=== PATIENT | female | born 1950 ===

== ENCOUNTER 2017-03-21 11:59 | Emergency (ER) | payer OTHER ==
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
[2017-03-21 13:16] LABS: BASO % 0.7 % (0.0-2.0); EOS # 0.2 K/uL (0.0-0.7); EOS % 2.9 % (0.0-4.0); HEMATOCRIT 34.5 % (34.0-47.0); LYMPH # 2.8 K/uL (1.0-4.3); LYMPH % 36.9 % (20.0-40.0); MEAN CELL VOLUME 75.3 fL (81.0-99.0); MEAN CORPUSCULAR HGB CONC 31.9 g/dL (33.0-37.0); MEAN PLATELET VOLUME 7.6 fL (7.2-11.7); MONO # 0.6 K/uL (0.0-0.8); MONO % 7.7 % (0.0-10.0); NRBC % 0.1 % (0.0-2.0); RED CELL DISTRIBUTION WIDTH 15.9 % (11.5-14.5); WHITE BLOOD COUNT 7.7 K/uL (4.8-10.8)
[2017-03-21 13:33] LABS: RBC URINE 3 /hpf (0-3); URINE BILIRUBIN NEGATIVE (NEGATIVE); URINE BLOOD 1+ (NEGATIVE); URINE COLOR Yellow (YELLOW); URINE GLUCOSE (UA) NORMAL (Normal); URINE KETONE NEGATIVE (NEGATIVE); URINE LEUKOCYTE ESTERASE NEG Leu/uL (Negative); URINE PROTEIN NEGATIVE (NEGATIVE); URINE UROBILINOGEN NORMAL mg/dL (0.2-1.0); WBC URINE 2 /hpf (0-5)
[2017-03-21 13:36] LABS: CHLORIDE 99 mmol/L (98-107); POTASSIUM 3.8 mmol/L (3.6-5.2); SODIUM 139 mmol/L (132-148)
[2017-03-21 13:38] LABS: BILIRUBIN,TOTAL 0.4 mg/dL (0.2-1.3); CARBON DIOXIDE 29 mmol/L (22-30); GFR AFRICAN-AMERICAN > 60
[2017-03-21 13:39] LABS: ALKALINE PHOSPHATASE 128 U/L (38-126); ALT/SGPT 38 U/L (9-52); AST/SGOT 32 U/L (14-36); BLOOD UREA NITROGEN 10 mg/dL (7-17); CALCIUM 9.3 mg/dl (8.6-10.4); GLUCOSE,RANDOM 114 mg/dL (65-105); TOTAL PROTEIN 7.2 g/dL (6.3-8.3)
[2017-03-21 15:06] VITALS: BP 137/84; PULSE 69; RESP 16; TEMP 98.1
[2017-03-23 06:01] VITALS: O2SAT 95
--- NOTE | 2017-03-25 11:55 | VASCLAB ---
PROCEDURE: Left Lower Extremity Venous Duplex Exam. HISTORY: left leg swelling and pain x 10 day PRIORS: None. TECHNIQUE: Left common femoral, femoral, popliteal and posterior tibial, peroneal and great saphenous veins were evaluated. Flow was assessed with color Doppler, compressibility, assessment of phasic flow and augmentation response. Report prepared by BENJAMIN Castillo, RVT FINDINGS: LEFT: 1. Common Femoral Vein: 1.1. Compressibility - Fully compressible: Thrombus - None : Flow - Phasic: Augmentation -Normal: Reflux - None. 2. Femoral Vein: 2.1. Compressibility - Fully compressible: Thrombus - None: Flow - Phasic: Augmentation -Normal: Reflux - None. 3. Popliteal Vein: 3.1. Compressibility - Fully compressible: Thrombus - None: Flow - Phasic: Augmentation -Normal: Reflux - None. 4. Posterior Tibial Vein: 4.1. Compressibility - Fully compressible: Thrombus - None: Flow - Phasic: Augmentation -Normal: Reflux - None. 5. Peroneal Vein: 5.1. Compressibility - Fully compressible: Thrombus - None: Flow - Phasic: Augmentation -Normal: Reflux - None. 6. Great Saphenous Vein: 6.1. Compressibility - Fully compressible: Thrombus - None: Flow - Phasic: Augmentation - Normal: Reflux - None. OTHER FINDINGS: IMPRESSION: No evidence of deep or superficial vein thrombosis of the left lower extremity with excellent venous flow. Normal valve function noted of the left side. Normal venous flow noted in the right common femoral vein.
== END 2017-03-21 15:08 | disposition home or self-care (01) ==
LOC: C.ER 11:59
DX: M79.662 Pain in left lower leg (principal); M79.89 Other specified soft tissue disorders

== ENCOUNTER 2017-05-28 11:22 | Emergency (ER) | payer OTHER ==
[2017-05-28 11:22] VITALS: BMI 39.6
[2017-05-28 11:34] VITALS: RESP 20
--- NOTE | 2017-05-28 12:30 | C.PDOC ---
History Of Present Illness 67 y/o women brought in by a person who says "is a son to her" (not her son) is here for psych evaluation. Patient is noted to have periods where she laughs and cries. Patient also c/o lower extremity pain. Denies SI or HI. Hx given by patient's "son". Time Seen by Provider: 05/28/17 12:00 Chief Complaint (Nursing): Psychiatric Evaluation History Per: Patient, Family ("son") History/Exam Limitations: language barrier Onset/Duration Of Symptoms: Days Current Symptoms Are (Timing): Still Present Suicide/Self Injury Attempted (Context): None Severity: Mild Associated Symptoms: denies: Suicidal Thoughts, Suicidal Plan Involuntary Hold By: None Recent travel outside of the [place]: No Additional History Per: Patient Past Medical History Reviewed: Historical Data, Nursing Documentation, Vital Signs Vital Signs: Last Vital Signs Temp 97.4 F L 05/28/17 15:01 Pulse 65 05/28/17 15:01 Resp 20 05/28/17 15:01 BP 150/80 05/28/17 15:01 Pulse Ox 97 05/28/17 15:01 - Medical History PMH: HTN, Hypothyroidism Family History: States: Unknown Family Hx - Social History Hx Alcohol Use: No Hx Substance Use: No - Immunization History Hx Tetanus Toxoid Vaccination: No Hx Influenza Vaccination: No Hx Pneumococcal Vaccination: No Review Of Systems Except As Marked, All Systems Reviewed And Found Negative. Musculoskeletal: Positive for: Leg Pain (lower extremity pain) Psych: Positive for: Psychosis. Negative for: Suicidal ideation, Other (HI) Physical Exam - Physical Exam Appears: Non-toxic, No Acute Distress Skin: Warm, Dry Head: Atraumatic, Normacephalic Eye(s): bilateral: Normal Inspection, PERRL, EOMI Chest: Symmetrical Cardiovascular: Rhythm Regular, No Murmur Respiratory: Normal Breath Sounds, No Rales, No Rhonchi, No Wheezing Gastrointestinal/Abdominal: Soft, No Tenderness Extremity: Normal ROM, Capillary Refill (<2secs), Swelling (Swelling to the lower extremities, left more than right) Neurological/Psych: Oriented x3 Gait: Steady ED Course And Treatment - Laboratory Results Result Diagrams: 05/28/17 13:02 05/28/17 13:02 Lab Interpretation: Normal O2 Sat by Pulse Oximetry: 96 (RA) Pulse Ox Interpretation: Normal Progress Note: Case discussed and patient evaluated by granite worker who evaluated patient in ED. and request discharge and follow up as outpatient at [facility] on 06/06 Reassessment Condition: Improved Medical Decision Making Medical Decision Making: Plans: * Blood labs * IV fluids * UA * Vascular Appointment for CRC made by touch up worker for 06/06 in no distress lungs clear Disposition Counseled Patient/Family Regarding: Studies Performed, Diagnosis, Need For Followup, Rx Given - Disposition Referrals: [email or web address] [Outside] [facility] [Outside] Disposition: HOME/ ROUTINE Disposition Time: 15:00 Condition: STABLE Additional Instructions: Follow up with [facility] on 06/06 at 9 am for further evaluation Instructions: Leg Pain (ED) Forms: [facility] ([place]kinan) - POA Present On Arrival: None - Clinical Impression Clinical Impression: Leg pain, left, Behavior concern in adult - Scribe Statement The provider has reviewed the documentation as recorded by the Scribe Kristen ibarra All medical record entries made by the Scribe were at my direction and personally dictated by me. I have reviewed the chart and agree that the record accurately reflects my personal performance of the history, physical exam, medical decision making, and the department course for this patient. I have also personally directed, reviewed, and agree with the discharge instructions and disposition.
[2017-05-28 13:06] LABS: BASO # 0.1 K/uL (0.0-0.2); BASO % 0.8 % (0.0-2.0); EOS # 0.1 K/uL (0.0-0.7); EOS % 1.5 % (0.0-4.0); HEMATOCRIT 37.1 % (34.0-47.0); LYMPH # 2.7 K/uL (1.0-4.3); LYMPH % 29.7 % (20.0-40.0); MEAN CELL VOLUME 76.5 fL (81.0-99.0); MEAN CORPUSCULAR HEMOGLOBIN 25.1 pg (27.0-31.0); MEAN CORPUSCULAR HGB CONC 32.8 g/dL (33.0-37.0); MEAN PLATELET VOLUME 7.2 fL (7.2-11.7); MONO # 0.7 K/uL (0.0-0.8); MONO % 7.7 % (0.0-10.0); NRBC % 0.1 % (0.0-2.0); RED CELL DISTRIBUTION WIDTH 15.5 % (11.5-14.5); WHITE BLOOD COUNT 9.2 K/uL (4.8-10.8)
[2017-05-28 13:16] LABS: CHLORIDE 101 mmol/L (98-107); POTASSIUM 3.7 mmol/L (3.6-5.2); SODIUM 137 mmol/L (132-148)
[2017-05-28 13:18] LABS: AST/SGOT 34 U/L (14-36); BILIRUBIN,TOTAL 0.4 mg/dL (0.2-1.3); CARBON DIOXIDE 24 mmol/L (22-30); GFR AFRICAN-AMERICAN > 60
[2017-05-28 13:19] LABS: ALKALINE PHOSPHATASE 133 U/L (38-126); ALT/SGPT 41 U/L (9-52); BLOOD UREA NITROGEN 13 mg/dL (7-17); CALCIUM 9.4 mg/dl (8.6-10.4); GLUCOSE,RANDOM 97 mg/dL (65-105); TOTAL PROTEIN 8.7 g/dL (6.3-8.3)
[2017-05-28 13:27] LABS: RBC URINE 3 /hpf (0-3); URINE BILIRUBIN NEGATIVE (NEGATIVE); URINE BLOOD 1+ (NEGATIVE); URINE COLOR Yellow (YELLOW); URINE GLUCOSE (UA) NORMAL (Normal); URINE KETONE NEGATIVE (NEGATIVE); URINE LEUKOCYTE ESTERASE NEG Leu/uL (Negative); URINE PROTEIN NEGATIVE (NEGATIVE); URINE UROBILINOGEN NORMAL mg/dL (0.2-1.0); WBC URINE 1 /hpf (0-5)
--- NOTE | 2017-05-28 14:19 | RAD ---
HISTORY: SOB COMPARISON: No prior. TECHNIQUE: Chest PA and lateral FINDINGS: LUNGS: No active pulmonary disease. PLEURA: No significant pleural effusion identified. No pneumothorax apparent. CARDIOVASCULAR: Cardiac silhouette appears prominent though an element of technical magnification is likely, at least, due to frontal technique. Linear bat wing pattern of hypervascular changes in the bilateral hilar regions is appreciate suspicious for CHF. Linear atelectasis or fibrosis in the inferior left lung zone laterally. OSSEOUS STRUCTURES: No significant abnormalities. VISUALIZED UPPER ABDOMEN: Normal. OTHER FINDINGS: None. IMPRESSION: Findings suspicious for active CHF. No infiltrate or pleural effusion bilaterally. No pneumothorax. Cardiomegaly is suspected and linear atelectasis or fibrosis in the inferior left lung zone. No alveolitis grossly evident.
--- NOTE | 2017-05-28 15:00 | VASCLAB ---
PROCEDURE: Lower Extremity Venous Duplex Exam. HISTORY: edema PRIORS: None. TECHNIQUE: Bilateral common femoral, femoral, popliteal and posterior tibial, peroneal and great saphenous veins were evaluated. Flow was assessed with color Doppler, compressibility, assessment of phasic flow and augmentation response. Report prepared by BENJAMIN Castillo, RVT FINDINGS: RIGHT: 1. Common Femoral Vein: 1.1. Compressibility - Fully compressible: Thrombus - None : Flow - Phasic: Augmentation -Normal: Reflux - None. 2. Femoral Vein: 2.1. Compressibility - Fully compressible: Thrombus - None : Flow - Phasic: Augmentation -Normal: Reflux - None. 3. Popliteal Vein: 3.1. Compressibility - Fully compressible: Thrombus - None : Flow - Phasic: Augmentation -Normal: Reflux - None. 4. Posterior Tibial Vein: 4.1. Compressibility - Fully compressible: Thrombus - None: Flow - Phasic: Augmentation -Normal: Reflux - None. 5. Peroneal Vein: 5.1. Compressibility - Fully compressible: Thrombus - None: Flow - Phasic: Augmentation -Normal: Reflux - None. 6. Great Saphenous Vein: 6.1. Compressibility - Fully compressible: Thrombus - None: Flow - Phasic: Augmentation - Normal: Reflux - None. LEFT: 1. Common Femoral Vein: 1.1. Compressibility - Fully compressible: Thrombus - None: Flow - Phasic: Augmentation -Normal: Reflux - None. 2. Femoral Vein: 2.1. Compressibility - Fully compressible: Thrombus - None: Flow - Phasic: Augmentation -Normal: Reflux - None. 3. Popliteal Vein: 3.1. Compressibility - Fully compressible: Thrombus - None : Flow - Phasic: Augmentation -Normal: Reflux - None. 4. Posterior Tibial Vein: 4.1. Compressibility - Fully compressible: Thrombus - None: Flow - Phasic: Augmentation -Normal: Reflux - None. 5. Peroneal Vein: 5.1. Compressibility - Fully compressible: Thrombus - None: Flow - Phasic: Augmentation -Normal: Reflux - None. 6. Great Saphenous Vein: 6.1. Compressibility - Fully compressible: Thrombus - None: Flow - Phasic: Augmentation - Normal: Reflux - None. OTHER FINDINGS: Right: None significant. Left: None significant. IMPRESSION: Right: No evidence of deep or superficial vein thrombosis of the right lower extremity. Normal valve function noted of the right side. Left: No evidence of deep or superficial vein thrombosis of the left lower extremity. Normal valve function noted of the left side.
[2017-05-28 15:03] VITALS: BP 150/80; PULSE 65; TEMP 97.4
[2017-05-28 18:17] VITALS: O2SAT 96
== END 2017-05-28 15:03 | disposition home or self-care (01) ==
LOC: C.ER 11:22
DX: R46.89 Other symptoms and signs involving appearance and behavior (principal); M79.662 Pain in left lower leg

== ENCOUNTER 2017-08-18 12:53 | Emergency (ER) | payer SELFPAY ==
[2017-08-18 12:53] VITALS: BMI 39.6
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
[2017-08-18 15:24] VITALS: BP 115/69; PULSE 61; RESP 18; TEMP 97.5; O2SAT 97
--- NOTE | 2017-08-18 15:43 | RAD ---
PROCEDURE: Right Knee Radiographs. HISTORY: COMPARISON: None available. FINDINGS: BONES: No acute displaced fracture. Degenerative changes. Tenting of the intercondylar notch. JOINTS: No dislocation. Lateral and patellofemoral joint space narrowing. JOINT EFFUSION: No significant joint effusion. OTHER FINDINGS: None. IMPRESSION: Degenerative changes. No acute displaced fracture, dislocation, or significant joint effusion identified. If symptoms persist, or if there is continued clinical concern, x-ray follow-up in 7-10 days should be considered.
--- NOTE | 2017-08-18 15:50 | RAD ---
Right ankle radiographs Indication: Injury Comparison: None available Findings: Soft tissue swelling. Severe degenerative changes of the ankle joint with evidence of subchondral sclerosis, degeneration, deformity, and severe joint space narrowing; correlate clinically for Charcot's joint. A fracture cannot be entirely excluded due to the limitations of the study. Tiny punctate radiodensities noted within the medial soft tissues. Correlate clinically. Impression: Soft tissue swelling. Severe degenerative changes of the ankle joint with evidence of subchondral sclerosis, degeneration, deformity, and severe joint space narrowing; correlate clinically for Charcot's joint. Fracture cannot be entirely excluded due to the limitations of the study. Correlate with physical exam. Tiny punctate radiodensities noted within the medial soft tissues. Correlate clinically. Findings discussed with Dr. Russell on 08/18/17 at 347pm.
--- NOTE | 2017-08-18 16:26 | RAD ---
PROCEDURE: Right Hip Radiographs. HISTORY: injury COMPARISON: None. FINDINGS: BONES: Normal. No fracture. JOINTS: Normal. SOFT TISSUES: Normal. OTHER FINDINGS: None. IMPRESSION: Normal radiographs of right hip.
--- NOTE | 2017-08-18 16:27 | RAD ---
PROCEDURE: Radiographs of the right tibia and fibula. HISTORY: injury COMPARISON: None available. TECHNIQUE: Frontal and lateral views obtained. FINDINGS: BONES: No fracture or destructive lesion. JOINT SPACES: Unremarkable. OTHER FINDINGS: None. IMPRESSION: Unremarkable radiographs of the right tibia and fibula.
--- NOTE | 2017-08-18 16:36 | RAD ---
PROCEDURE: Right Foot Radiographs. HISTORY: injury COMPARISON: None. FINDINGS: BONES: No evidence of acute fracture. JOINTS: There is collapse of the anterior calcaneus. As a result there is articulation between the posterior tibia and the calcaneus. There is sclerosis of the anterior calcaneus. There are corticated ossific densities along the plantar aspect of the anterior calcaneus, of uncertain significance. Most likely, these findings represent 8 neuropathic foot. SOFT TISSUES: Normal. OTHER FINDINGS: None. 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 There is corticated ossific densities along the plantar aspect of the foot at the level of the anterior calcaneus, of uncertain significance. 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 Please correlate.
== END 2017-08-18 15:48 | disposition home or self-care (01) ==
LOC: C.ER 12:53
DX: S80.01XA Contusion of right knee, initial encounter (principal); S93.401A Sprain of unspecified ligament of right ankle, initial encounter; S50.01XA Contusion of right elbow, initial encounter; V09.3XXA Pedestrian injured in unspecified traffic accident, initial encounter; Y92.410 Unspecified street and highway as the place of occurrence of the external cause

== ENCOUNTER 2018-01-29 11:55 | Emergency (ER) | payer SELFPAY ==
[2018-01-29 11:55] VITALS: BMI 39.6
[2018-01-29 12:11] VITALS: BP 131/72; PULSE 63; RESP 20; TEMP 97; O2SAT 97
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
--- NOTE | 2018-01-29 13:44 | RAD ---
PROCEDURE: HISTORY: pain s.p fall 2 days ago COMPARISON: 08/18/2007 TECHNIQUE: AP view of the pelvis and applicable frog leg views obtained. FINDINGS: Inferior lumbar marginal osteophytosis. L4-5 and L5-S1 facet hypertrophic arthrosis lucency overlying the left L5 facet and pars interarticularis region probably relates to a spondylolysis here and/or Mach band artifact with left facet arthrosis changes. Is faint suggestion of its presence on prior studies. Superimposed vascular calcifications here are also noted somewhat confounding anatomy. The sclerotic lesion bordering the inferior left SI joint iliac side is as before. Bilateral hip joint space narrowing superolateral with corresponding superolateral acetabular spurring. Findings similar. No interval SI joint or pubic symphyseal joint pathology noted Stool retention. Innumerable similarly sized radiopacity these projecting over the abdomen pelvis and upper thighs believed extrinsic to the patient Large body habitus IMPRESSION: Degenerative changes. No suspect acute fracture
--- NOTE | 2018-01-29 13:48 | RAD ---
PROCEDURE: Right Knee Radiographs. HISTORY: pain s.p fall 2 days ago COMPARISON: None. FINDINGS: BONES: . No fracture. JOINTS: osteoarthritis. JOINT EFFUSION: Small possible OTHER FINDINGS: None. IMPRESSION: Osteoarthrosis. No fracture Small suprapatellar joint effusion possible
== END 2018-01-29 13:19 | disposition home or self-care (01) ==
LOC: C.ER 11:55
DX: S80.11XA Contusion of right lower leg, initial encounter (principal); V03.00XA Pedestrian on foot injured in collision with car, pick-up truck or van in nontraffic accident, initial encounter; Y93.01 Activity, walking, marching and hiking; I10 Essential (primary) hypertension; E03.9 Hypothyroidism, unspecified